=== PATIENT | male | born 1960 | race Caucasian/White ===

== ENCOUNTER → 2020-03-28 | Outpatient (REF) | payer BC | LOC: M LAB REF 16:20 | PROVIDERS: ATTEND Internal Medicine | DX: R74.8 Abnormal levels of other serum enzymes (principal) ==

== ENCOUNTER → 2020-05-10 | Outpatient (REF) | payer BC | LOC: M LAB REF 11:30 | PROVIDERS: ATTEND Internal Medicine | DX: R74.8 Abnormal levels of other serum enzymes (principal) ==

== ENCOUNTER 2021-03-05 07:04 | Emergency (ER) | payer BC ==
[~2021-03-05] VITALS: Ht 175.3 cm; Wt 72.7 kg
[2021-03-05] MEDS ORDERED: ATOR1TAB19 (07:13)
[2021-03-05] MEDS ORDERED: IBUPROFEN 800 MG TAB PO ONE (09:45)
[2021-03-05] MEDS ORDERED: IBUP80TA PO (09:45)
[2021-03-05 09:53] VITALS: BP 140/90
== END 2021-03-05 10:01 | disposition home or self-care (01) ==
LOC: M ED 07:04
DX: M79.602 Pain in left arm (principal); R20.2 Paresthesia of skin; R94.31 Abnormal electrocardiogram [ECG] [EKG]; E78.00 Pure hypercholesterolemia, unspecified; F17.210 Nicotine dependence, cigarettes, uncomplicated

== ENCOUNTER → 2021-03-08 | Outpatient (CLI) | payer BC ==
[~2021-03-08] MED LIST: ATOR1TAB19; IBUP80TA PO
== END ==
LOC: M WUC 11:30
PROVIDERS: ATTEND Internal Medicine
DX: M50.30 Other cervical disc degeneration, unspecified cervical region (principal)

== ENCOUNTER → 2021-05-24 | Outpatient (CLI) | payer BC | LOC: M RAD 15:21 | PROVIDERS: ATTEND Internal Medicine | DX: Z12.2 Encounter for screening for malignant neoplasm of respiratory organs (principal); F17.210 Nicotine dependence, cigarettes, uncomplicated ==

== ENCOUNTER → 2021-11-15 | Outpatient (CLI) | payer BC ==
[~2021-11-15] MED LIST changes: -ATOR1TAB19; +ATOR1TAB19 PO
== END ==
LOC: M LABSMTC 11:28
PROVIDERS: ATTEND Anesthesiology
DX: Z01.812 Encounter for preprocedural laboratory examination (principal); Z11.52 Encounter for screening for COVID-19

== ENCOUNTER 2021-11-20 10:56 | Day surgery (SDC) | payer BC ==
[~2021-11-20] VITALS: Ht 175.3 cm; Wt 70.3 kg
[~2021-11-20 10:56] MED LIST changes: +NS 1,000 ML IV ONE
[2021-11-20] MEDS ORDERED: propofoL 200 MG/20 ML VIAL As Ordered ONE (12:24)
[2021-11-20] MEDS ORDERED: LIDOCAINE 2% 100MG/5ML SDV (FOR ANES.) As Ordered ONE (12:24)
[2021-11-20 13:37] VITALS: BP 139/83
== END 2021-11-20 13:38 | disposition home or self-care (01) ==
LOC: M OPP 10:56
PROVIDERS: ATTEND Internal Medicine Gastroenterology
DX: Z12.11 Encounter for screening for malignant neoplasm of colon (principal); Z86.010 Personal history of colon polyps; K64.0 First degree hemorrhoids; K57.30 Diverticulosis of large intestine without perforation or abscess without bleeding; K55.20 Angiodysplasia of colon without hemorrhage; Z79.02 Long term (current) use of antithrombotics/antiplatelets; E78.00 Pure hypercholesterolemia, unspecified; F17.200 Nicotine dependence, unspecified, uncomplicated; Z80.52 Family history of malignant neoplasm of bladder

== ENCOUNTER → 2022-06-13 | Outpatient (CLI) | payer BC ==
[~2022-06-13] MED LIST changes: -NS 1,000 ML IV ONE
== END ==
LOC: M RAD 13:17
PROVIDERS: ATTEND Internal Medicine
DX: Z12.2 Encounter for screening for malignant neoplasm of respiratory organs (principal); F17.200 Nicotine dependence, unspecified, uncomplicated

== ENCOUNTER → 2023-06-17 | Outpatient (CLI) | payer BC | LOC: M RAD 15:29 | PROVIDERS: ATTEND Internal Medicine | DX: Z12.2 Encounter for screening for malignant neoplasm of respiratory organs (principal); F17.210 Nicotine dependence, cigarettes, uncomplicated ==

== ENCOUNTER → 2024-06-17 | Outpatient (CLI) | payer OTHER | LOC: M RAD 13:26 | PROVIDERS: ATTEND Internal Medicine | DX: F17.210 Nicotine dependence, cigarettes, uncomplicated (principal) ==